=== PATIENT | female | born 1990 | race African-American/Black ===

== ENCOUNTER 2017-11-01 06:19 | Emergency (ER) | payer BC ==
--- NOTE | 2017-11-01 06:49 | EDPHYS ---
Physician Documentation [facility] Name: Alice Giordano Age: 27 yrs Sex: Female : 1990 Arrival Date: 11/01/2017 Time: 06:26 Bed 6 Private MD: ED Physician Jhonatan Marcos HPI: 11/01 06:43 This 27 yrs old Black Female presents to ER via Ambulatory with complaints of Salivary rn Stone Problem. 06:43 The patient presents with swelling. Onset: The symptoms/episode began/occurred at an rn unknown time. Modifying factors: The symptoms are alleviated by nothing, the symptoms are aggravated by food. Associated signs and symptoms: Pertinent positives: swelling, Pertinent negatives: pain, swelling. Severity of symptoms: At their worst the symptoms were moderate, in the emergency department the symptoms have improved. The patient has not experienced similar symptoms in the past. The patient has not recently seen a physician. Reports has had salivary stone since she was small, has dealt with it, recently manipulated it and thinks made it worse, now hurts when eats, seen by dentist and told large stone seen on xray but he doesn't remove them. Made ENT appt but not available with Dr. Fulton for 1 month out. . 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 - Social history:: Smoking status: Patient/guardian denies using tobacco, Patient uses alcohol, occasionally. Patient/guardian denies using street drugs. - Family history:: not pertinent. - Hospitalizations: : No recent hospitalization is reported. ROS: 06:43 Constitutional: Negative for fever, chills, and weight loss, Eyes: Negative for injury, rn pain, redness, and discharge, ENT: Negative for injury, + salivary stone Exam: 06:43 Constitutional: This is a well developed, well nourished patient who is awake, alert, rn and in no acute distress. ENT: + sublingual swelling and firm mass palpated on left side, mobile, non-tender, no erythema or drainage Vital Signs: 06:30 BP 144 / 96; Pulse 85; Resp 18; Temp 98.7(O); Pulse Ox 100% on NC; Weight 84.82 kg (R); fc Height 6 ft. 0 in. (182.88 cm) (R); Pain 3/10; 06:30 Body Mass Index 25.36 (84.82 kg, 182.88 cm) fc MDM: 06:35 Patient medically screened. rn 06:43 Differential diagnosis: salivary stone. Data reviewed: vital signs, nurses notes, and rn as a result, I will discharge patient. Counseling: I had a detailed discussion with the patient and/or guardian regarding: the historical points, exam findings, and any diagnostic results supporting the discharge/admit diagnosis, the need for outpatient follow up, to return to the emergency department if symptoms worsen or persist or if there are any questions or concerns that arise at home. Special discussion: I discussed with the patient/guardian in detail that at this point there is no indication for admission to the hospital. It is understood, however, that if the symptoms persist or worsen the patient needs to return immediately for re-evaluation. Based on the history and exam findings, there is no indication for further emergent testing or inpatient evaluation. I discussed with the patient/guardian the need to see the ENT specialist for further evaluation of the symptoms. Administered Medications: No medications were administered Disposition: 11/01/17 06:48 Discharged to Home as Medical Screen. Impression: Sialolithiasis. - Condition is Stable. - Medication Reconciliation Form, Thank You Letter, Antibiotic Education, Prescription Opioid Use form. - Follow up: Merline Fulton MD; When: As needed; Reason: Recheck today's complaints, Re-evaluation by your physician. - Problem is chronic. - Symptoms are unchanged. Signatures: Antonia Dubon RN RN fc Odalis Pike RN RN bb Jhonatan Marcos MD MD rn
--- NOTE | 2017-11-01 06:49 | ER ---
Nurse's Notes [facility] Name: Alice Giordano Age: 27 yrs Sex: Female : 1990 Arrival Date: 11/01/2017 Time: 06:26 Bed 6 Private MD: Diagnosis: Sialolithiasis Presentation: 11/01 06:30 Presenting complaint: Patient states: that she has had a salivary stone for years and fc over the weekend it got stuck. The pain was worse this am when she attempted to drink a coke. Its on the left side. Transition of care: patient was not received from another setting of care. Onset of symptoms was November 01, 2017. Care prior to arrival: None. 06:30 Method Of Arrival: Ambulatory 06:30 Acuity: SANG [address] M[address]ER: 06:52 LMP N/A - bb Historical: - Allergies: 06:36 benzocaine; fc 06:36 SHELLFISH; fc 06:36 brianna; fc - Home Meds: 06:36 Vyvanse 60 mg oral cap 1 cap once daily [Active]; fc - PMHx: 06:36 ADD/ADHD; Salivary Stone; fc - PSHx: 06:36 Hernia repair; fc - Immunization history:: Last tetanus immunization: up to date. - Social history:: Smoking status: Patient/guardian denies using tobacco, Patient uses alcohol, occasionally. Patient/guardian denies using street drugs. - Family history:: not pertinent. - Hospitalizations: : No recent hospitalization is reported. Screenin:35 Abuse screen: Denies threats or abuse. Nutritional screening: No deficits noted. fc Tuberculosis screening: No symptoms or risk factors identified. Fall Risk None identified. Assessment: 06:33 General: Appears in no apparent distress. well groomed, Behavior is calm, cooperative. bb Pain: Complains of pain in left submandibular area Pain currently is 3 out of 10 on a pain scale. at worst was 6 out of 10 on a pain scale. Neuro: Level of Consciousness is awake, alert, obeys commands, Oriented to person, place, time, situation. Cardiovascular: Heart tones S1 S2 present Capillary refill < 3 seconds Patient's skin is warm and dry. Respiratory: Respiratory effort is even, unlabored, Respiratory pattern is regular, Breath sounds are clear bilaterally. GI: No signs and/or symptoms were reported involving the gastrointestinal system. Abdomen is non-distended. EENT: Reports she has a salivary stone left side which is bothering her. Derm: Skin is dry, Skin is normal, Skin temperature is warm. Musculoskeletal: Circulation, motion, and sensation intact. 06:51 Reassessment: pt verbalized understanding of and agrees to plan of care discharge bb instructions given pt ambulated with steady gait to exit. Vital Signs: 06:30 BP 144 / 96; Pulse 85; Resp 18; Temp 98.7(O); Pulse Ox 100% on NC; Weight 84.82 kg (R); fc Height 6 ft. 0 in. (182.88 cm) (R); Pain 3/10; 06:30 Body Mass Index 25.36 (84.82 kg, 182.88 cm) ED Course: 06:26 Patient arrived in ED. do 06:30 Arm band placed on Patient placed in an exam room, on a stretcher. fc 06:33 Warm blanket given. bb 06:34 Triage completed. fc 06:35 Jhonatan Marcos MD is Attending Physician. rn 06:35 Patient has correct armband on for positive identification. Bed in low position. Call fc light in reach. Pulse ox on. NIBP on. 06:35 No provider procedures requiring assistance completed. fc 06:48 Merline Fulton MD is Referral Physician. rn 06:52 Patient did not have IV access during this emergency room visit. bb Administered Medications: No medications were administered Outcome: 06:48 Discharge ordered by . rn 06:51 Discharged to home ambulatory. bb 06:51 Condition: stable 06:51 Discharge instructions given to patient, Instructed on discharge instructions, follow up and referral plans. Demonstrated understanding of instructions, follow-up care. 06:52 Patient left the ED. bb Signatures: Antonia Dubon RN RN fc Odalis Pike RN RN bb Jhonatan Marcos MD MD rn Ogletree, Danielle do
[2017-11-01 07:10] VITALS: BP 144/96; TEMP 98.7; O2SAT 100
== END 2017-11-01 06:52 | disposition home or self-care (01) ==
LOC: ER 06:19
DX: K11.5 Sialolithiasis (principal); F90.9 Attention-deficit hyperactivity disorder, unspecified type; Z88.4 Allergy status to anesthetic agent; Z91.013 Allergy to seafood
CPT/HCPCS: 99283

== ENCOUNTER 2017-11-03 12:23 | Observation (INO) | payer BC ==
[2017-11-03] MEDS ORDERED: FENTANYL CITR 100 MCG/2 ML ONE ×4 (13:34→17:45)
[2017-11-03] MEDS ORDERED: CEFTRIAXONE/SWI 1gm 1 GM/10 ML SYR ONE (13:35)
[2017-11-03] MEDS ORDERED: ONDANSETRON 4 MG/2 ML VIAL ONE ×2 (13:35→17:45)
[2017-11-03] MEDS ORDERED: NA CHLORIDE 0.9% 1,000 ML ONE (13:35)
[2017-11-03 13:43] LABS: Absolute Lymphocytes (CBC) 2.4 K/uL (0.7-4.9); Absolute Monocytes 0.7 K/uL (0.1-1.3); Absolute Neutrophil 5.6 K/uL (1.8-8.0); Basophils % 0.5 % (0-1.3); Eosinophils % 2.3 % (0-4.4); Hematocrit 41.5 % (36.0-45.0); Lymphocytes % 26.7 % (15.3-44.8); MCH 30.2 pg (27.0-35.0); MCV 90.3 fL (80-100); MPV 7.5 fL (7.6-11.3); Monocytes % 8.1 % (3.3-12.3); RBC Red Blood Cell Count 4.59 M/uL (3.86-4.86)
[2017-11-03 13:57] LABS: Glucose Level 111 mg/dL (65-120)
[2017-11-03 14:00] LABS: ALT/SGPT 29 IU/L (10-60); AST/SGOT 36 IU/L (10-42); Albumin 4.1 g/dL (3.2-5.5); Alkaline Phosphatase 40 IU/L (42-121); BUN Blood Urea Nitrogen 20 mg/dL (6-20); Bicarbonate 25 mEq/L (21-31); Bilirubin Total 0.5 mg/dL (0.3-1.2); Glomerular Filtration Rate > 90 mL/min (=/>90); Protein, Total 6.9 g/dL (6.0-8.3); Sodium Level 133 mEq/L (135-145)
[2017-11-03] MEDS ORDERED: CLINDAMYCIN 900MG/D5W 900 MG/50 ML BAG IV ONE (14:20)
--- NOTE | 2017-11-03 14:52 | ER ---
Nurse's Notes [facility] Name: Alice Giordano Age: 27 yrs Sex: Female : 1990 Arrival Date: 11/03/2017 Time: 12:27 Bed 18 Private MD: Diagnosis: Sialolithiasis Presentation: 11/03 12:32 Presenting complaint: Patient states: I have a salivary stone and now I am having la1 swelling in my jaw and worsening pain. Transition of care: patient was not received from another setting of care. Onset of symptoms was November 03, 2017. Care prior to arrival: None. 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 - Social history:: Smoking status: Patient/guardian denies using tobacco. - Family history:: not pertinent. Screenin:57 Abuse screen: Denies threats or abuse. Nutritional screening: No deficits noted. em Tuberculosis screening: No symptoms or risk factors identified. Fall Risk None identified. Assessment: 13:00 General: Appears in no apparent distress. uncomfortable, Behavior is cooperative, em crying. General: Denies fever, was here 2 days ago, was dx with salivary stone, saw dentist yesterday but was charging 1000.00 to remove stone. . Pain: Complains of pain in left submandibular area Pain radiates to left side of neck Pain currently is 10 out of 10 on a pain scale. Pain began 4 days ago. Neuro: Level of Consciousness is awake, alert, obeys commands, Oriented to person, place, time, situation. Cardiovascular: Capillary refill < 3 seconds Patient's skin is warm and dry. Respiratory: Airway is patent Respiratory effort is even, unlabored, Respiratory pattern is regular, symmetrical. GI: Abdomen is flat. : No signs and/or symptoms were reported regarding the genitourinary system. EENT: Oral mucosa is moist. Good dentition noted. Reports difficulty swallowing. Derm: Skin is intact, Skin is pink, warm \T\ dry. Musculoskeletal: Range of motion: intact in all extremities. 14:14 Reassessment: Patient appears in no apparent distress at this time. Patient and/or em family updated on plan of care and expected duration. Pain level reassessed. Patient is alert, oriented x 3, equal unlabored respirations, skin warm/dry/pink. 15:10 Reassessment: Patient appears in no apparent distress at this time. Patient and/or em family updated on plan of care and expected duration. Pain level reassessed. Patient is alert, oriented x 3, equal unlabored respirations, skin warm/dry/pink. 15:28 Reassessment: Patient appears in no apparent distress at this time. No changes from la1 previously documented assessment. I agree with the above assessment by Alfred Pickens. Vital Signs: 12:33 BP 132 / 77; Pulse 88; Resp 16; Temp 99.2(TE); Pulse Ox 100% on R/A; Weight 81.65 kg; la1 Height 6 ft. 0 in. (182.88 cm); 13:30 BP 114 / 76; Pulse 64; Resp 15; Pulse Ox 99% on R/A; Pain 9/10; em 14:27 BP 116 / 90; Pulse 88; Resp 18; Pulse Ox 99% on R/A; em 15:27 BP 120 / 76; Pulse 61; Resp 16; Pulse Ox 99% on R/A; mh5 12:33 Body Mass Index 24.41 (81.65 kg, 182.88 cm) la1 ED Course: 12:27 Patient arrived in ED. as 12:32 Triage completed. la1 12:33 Arm band placed on right wrist. la1 12:37 Alfred Pickens LVN is Primary Nurse. em 12:50 April Jackson FNP-C is PHCP. kb 12:50 Marlo Chiu MD is Attending Physician. kb 13:06 Marlo Chiu MD is Attending Physician. ge 13:30 No provider procedures requiring assistance completed. Initial lab(s) drawn, by me, em sent to lab. Inserted saline lock: 20 gauge in right antecubital area, using aseptic technique. 13:57 Patient has correct armband on for positive identification. Bed in low position. Call em light in reach. Side rails up X2. Adult w/ patient. 14:51 Merline Fulton MD is Hospitalizing Provider. ge 16:28 Patient admitted, IV remains in place. em Administered Medications: 13:30 Drug: NS 0.9% 1000 ml Route: IV; Rate: 1 bolus; Site: right antecubital; em 14:53 Follow up: IV Status: Completed infusion; IV Intake: 1000ml em 13:31 Drug: Rocephin - (cefTRIAXone) 1 grams Route: IVPB; Infused Over: 30 mins; Site: right jl7 antecubital; 13:33 Follow up: Response: No adverse reaction; IV Status: Completed infusion jl7 14:00 Follow up: Response: No adverse reaction em 13:34 Drug: fentaNYL (PF) 50 mcg Route: IVP; Site: right antecubital; jl7 14:01 Follow up: Response: No adverse reaction; Pain is decreased em 13:36 Drug: Zofran 4 mg Route: IVP; Site: right antecubital; jl7 14:01 Follow up: Response: No adverse reaction em 14:09 Drug: Clindamycin 900 mg Route: IVPB; Infused Over: 30 mins; Site: right antecubital; em 14:54 Follow up: IV Status: Completed infusion; IV Intake: 50ml em 14:44 Drug: fentaNYL (PF) 50 mcg Route: IVP; Site: right antecubital; em 14:54 Follow up: Response: No adverse reaction; Pain is decreased em 15:47 Drug: fentaNYL (PF) 25 mcg Route: IVP; Site: right antecubital; em 15:58 Follow up: Response: No adverse reaction; Pain is decreased em Intake: 14:53 IV: 1000ml; Total: 1000ml. em 14:54 IV: 50ml; Total: 1050ml. em Outcome: 14:52 Decision to Hospitalize by Provider. ge 16:27 Admitted to Med/surg accompanied by tech, via wheelchair, room 211, Report called to em Briseida Fuentes RN 16:27 Condition: good 16:27 Instructed on the need for admit, Demonstrated understanding of instructions. 16:30 Patient left the ED. em Signatures: April Jackson, WING COVERER-C WING COVERER-Marlo Ghotra MD MD cha Munoz, Edgar, CAPSULE FILLER CAPSULE FILLER em Viki Royal Lee RN RN or1 Alyce Royal [facility] Carroll Reed, RN RN jl7
--- NOTE | 2017-11-03 14:52 | EDPHYS ---
Physician Documentation [facility] Name: Alice Giordano Age: 27 yrs Sex: Female : 1990 Arrival Date: 11/03/2017 Time: 12:27 Bed 18 Private MD: ED Physician Marlo Chiu HPI: 11/03 13:13 This 27 yrs old Black Female presents to ER via Ambulatory with complaints of Mouth ge Problem. 13:13 The patient presents with pain, redness. The problem is located in the tongue. Onset: ge The symptoms/episode began/occurred 4 day(s) ago. Duration: The symptoms are continuous, and are steadily getting worse. Modifying factors: The symptoms are alleviated by nothing, the symptoms are aggravated by food. Associated signs and symptoms: The patient has no apparent associated signs or symptoms. Severity of symptoms: At their worst the symptoms were moderate, in the emergency department the symptoms are unchanged. The patient has not experienced similar symptoms in the past. 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 - Social history:: Smoking status: Patient/guardian denies using tobacco. - Family history:: not pertinent. ROS: 13:13 Eyes: Negative for injury, pain, redness, and discharge, Neck: Negative for injury, ge pain, and swelling, Cardiovascular: Negative for chest pain, palpitations, and edema, Respiratory: Negative for shortness of breath, cough, wheezing, and pleuritic chest pain, Abdomen/GI: Negative for abdominal pain, nausea, vomiting, diarrhea, and constipation, Back: Negative for injury and pain, : Negative for injury, bleeding, discharge, and swelling, MS/Extremity: Negative for injury and deformity, Skin: Negative for injury, rash, and discoloration, Neuro: Negative for headache, weakness, numbness, tingling, and seizure, Psych: Negative for depression, anxiety, suicide ideation, homicidal ideation, and hallucinations, Allergy/Immunology: Negative for hives, rash, and allergies, Endocrine: Negative for neck swelling, polydipsia, polyuria, polyphagia, and marked weight changes, Hematologic/Lymphatic: Negative for swollen nodes, abnormal bleeding, and unusual bruising. 13:13 Constitutional: Positive for body aches, chills. 13:13 ENT: Positive for dental pain, Gum pain Exam: 13:13 Constitutional: This is a well developed, well nourished patient who is awake, alert, ge and in no acute distress. Head/Face: Normocephalic, atraumatic. Eyes: Pupils equal round and reactive to light, extra-ocular motions intact. Lids and lashes normal. Conjunctiva and sclera are non-icteric and not injected. Cornea within normal limits. Periorbital areas with no swelling, redness, or edema. ENT: Nares patent. No nasal discharge, no septal abnormalities noted. Tympanic membranes are normal and external auditory canals are clear. Oropharynx with no redness, swelling, or masses, exudates, or evidence of obstruction, uvula midline. Mucous membranes moist. Chest/axilla: Normal chest wall appearance and motion. Nontender with no deformity. No lesions are appreciated. Cardiovascular: Regular rate and rhythm with a normal S1 and S2. No gallops, murmurs, or rubs. Normal PMI, no JVD. No pulse deficits. Respiratory: Lungs have equal breath sounds bilaterally, clear to auscultation and percussion. No rales, rhonchi or wheezes noted. No increased work of breathing, no retractions or nasal flaring. Abdomen/GI: Soft, non-tender, with normal bowel sounds. No distension or tympany. No guarding or rebound. No evidence of tenderness throughout. Back: No spinal tenderness. No costovertebral tenderness. Full range of motion. Female : Normal external genitalia. Skin: Warm, dry with normal turgor. Normal color with no rashes, no lesions, and no evidence of cellulitis. MS/ Extremity: Pulses equal, no cyanosis. Neurovascular intact. Full, normal range of motion. Neuro: Awake and alert, GCS 15, oriented to person, place, time, and situation. Cranial nerves II-XII grossly intact. Motor strength 5/5 in all extremities. Sensory grossly intact. Cerebellar exam normal. Normal gait. Psych: Awake, alert, with orientation to person, place and time. Behavior, mood, and affect are within normal limits. 13:13 Neck: External neck: swelling, tenderness, that is mild, that is moderate, of the left submandibular area. Vital Signs: 12:33 BP 132 / 77; Pulse 88; Resp 16; Temp 99.2(TE); Pulse Ox 100% on R/A; Weight 81.65 kg; la1 Height 6 ft. 0 in. (182.88 cm); 13:30 BP 114 / 76; Pulse 64; Resp 15; Pulse Ox 99% on R/A; Pain 9/10; em 14:27 BP 116 / 90; Pulse 88; Resp 18; Pulse Ox 99% on R/A; em 15:27 BP 120 / 76; Pulse 61; Resp 16; Pulse Ox 99% on R/A; mh5 12:33 Body Mass Index 24.41 (81.65 kg, 182.88 cm) la1 MDM: 12:50 Patient medically screened. kb 13:06 Patient medically screened. [facility] 13:18 Data reviewed: vital signs, nurses notes, lab test result(s), radiologic studies. [facility] 11/03 13:13 Order name: CBC with Diff; Complete Time: 14:50 [facility] 11/03 13:13 Order name: Comprehensive Metabolic Panel; Complete Time: 14:50 [facility] 11/03 13:13 Order name: Urine Culture [facility] 11/03 14:56 Order name: Basic Metabolic Panel [facility] 11/03 14:56 Order name: Basic Metabolic Panel [facility] 11/03 14:56 Order name: CBC with Automated Diff [facility] 11/03 14:56 Order name: CBC with Automated Diff [facility] 11/03 15:50 Order name: Urine Dipstick--Ancillary (enter results) 11/03 15:50 Order name: Urine --Ancillary (enter results) 11/03 13:13 Order name: Urine Test (obtain specimen); Complete Time: 15:44 [facility] 11/03 13:13 Order name: Urine Dipstick-Ancillary (obtain specimen); Complete Time: 15:44 [facility] 11/03 14:56 Order name: NPO EDMS 11/03 14:56 Order name: NPO EDMS Administered Medications: 13:30 Drug: NS 0.9% 1000 ml Route: IV; Rate: 1 bolus; Site: right antecubital; em 14:53 Follow up: IV Status: Completed infusion; IV Intake: 1000ml em 13:31 Drug: Rocephin - (cefTRIAXone) 1 grams Route: IVPB; Infused Over: 30 mins; Site: right jl7 antecubital; 13:33 Follow up: Response: No adverse reaction; IV Status: Completed infusion jl7 14:00 Follow up: Response: No adverse reaction em 13:34 Drug: fentaNYL (PF) 50 mcg Route: IVP; Site: right antecubital; jl7 14:01 Follow up: Response: No adverse reaction; Pain is decreased em 13:36 Drug: Zofran 4 mg Route: IVP; Site: right antecubital; jl7 14:01 Follow up: Response: No adverse reaction em 14:09 Drug: Clindamycin 900 mg Route: IVPB; Infused Over: 30 mins; Site: right antecubital; em 14:54 Follow up: IV Status: Completed infusion; IV Intake: 50ml em 14:44 Drug: fentaNYL (PF) 50 mcg Route: IVP; Site: right antecubital; em 14:54 Follow up: Response: No adverse reaction; Pain is decreased em 15:47 Drug: fentaNYL (PF) 25 mcg Route: IVP; Site: right antecubital; em 15:58 Follow up: Response: No adverse reaction; Pain is decreased em Disposition: 18 14:52 Hospitalization ordered by Merline Fulton for Observation. Preliminary diagnosis is Sialolithiasis. - Bed requested for Telemetry/MedSurg (observation). - Status is Observation. em - Condition is Stable. - Problem is new. - Symptoms have improved. UTI on Admission? No Signatures: Dispatcher [employer] April Anderson, BRYAN-C HEALTH POLICY MANAGER-Marlo Ghotra MD MD cha Munoz, Edgar, BOX TRUCK WASHER BOX TRUCK WASHER em Alexis Peralta RN RN laCarroll Curran RN RN jl7 Kelli Baxter RN RN df
[2017-11-03] MEDS ORDERED: ACETAMINOPHEN 500 MG TAB PO PRN (14:54)
[2017-11-03] MEDS ORDERED: FENTANYL CITR 100 MCG/2 ML IV PRN (14:55)
[2017-11-03] MEDS: D5 0.45 NS 1,000 ML IV SCH ×2 (15:00→23:12)
[2017-11-03] MEDS: ONDANSETRON 4 MG/2 ML VIAL IV PRN ×2 (16:22→23:11)
[2017-11-03] MEDS ORDERED: Ringers Lactate 1,000 ML IV ONE ×2 (16:41→20:02)
[2017-11-03 17:23] LABS: Urine Blood TRACE (NEG); Urine Glucose NEGATIVE (NEG); Urine Protein NEGATIVE (NEG); Urine Specific Gravity 1.025 (1.005-1.030); Urine pH 5.5 (5.0-7.0)
[2017-11-03] MEDS ORDERED: LIDOCAINE 1% MPF 5 ML VIAL ONE (17:45)
[2017-11-03] MEDS ORDERED: PROPOFOL 200 MG/20 ML VIAL IV ONE (17:45)
[2017-11-03] MEDS ORDERED: MIDAZOLAM HCL 2 MG/2 ML INJ ONE (17:45)
[2017-11-03] MEDS ORDERED: CHLORHEXIDINE 0.12% 473ML BOT MM ONE (18:13)
[2017-11-03] MEDS ORDERED: ROCURONIUM 50 MG/5 ML VIAL IV ONE (18:35)
--- NOTE | 2017-11-03 18:51 | P.BOP ---
Preoperative diagnosis: sialolithiasis, acute sialoadenitis Postoperative diagnosis: same Primary procedure: marsupialization of left SMG with removal of stone Special Procedures Tech: NONE,NONE Estimated blood loss: 15ml Specimen: none Findings: approx 1 x 0.5 cm stone given to family Anesthesia: General Complications: None Implants: none Fluids & blood products: crystalloid 600ml Transferred to: Recovery Room Condition: Good
[2017-11-03] MEDS ORDERED: DEXAMETHASONE 10 MG/ML VIAL ONE (18:55)
[2017-11-03] MEDS ORDERED: MEPERIDINE HCL 25 MG/0.5 ML ONE (19:16)
[2017-11-03] MEDS: MEPERIDINE HCL 25 MG/0.5 ML ONE ×2 (19:18→19:32)
[2017-11-03] MEDS ORDERED: MORPHINE 4 MG/ML SYR IV PRN (19:38)
[2017-11-03 19:49] VITALS: O2SAT 98
[2017-11-03] MEDS: IBUPROFEN 200 MG TAB PO SCH (20:58)
[2017-11-04] MEDS: IBUPROFEN 200 MG TAB PO SCH ×2 (00:09→04:08)
[2017-11-04] MEDS ORDERED: CLINDAMYCIN INJ 900 MG in NA CHLORIDE 0.9% 50 ML IV SCH (01:00)
[2017-11-04] MEDS: ONDANSETRON 4 MG/2 ML VIAL IV PRN (04:55)
[2017-11-04] MEDS: D5 0.45 NS 1,000 ML IV SCH (06:35)
--- NOTE | 2017-11-04 07:20 | OP ---
Date of Procedure: 11/03/2017 Surgeon: Merline Fulton MD Preoperative Diagnosis: Sialolithiasis, salivary gland obstruction, acute sialoadenitis. Postoperative Diagnosis: Sialolithiasis, salivary gland obstruction, acute sialoadenitis. Procedure: Marsupialization of left submandibular gland with removal of stone. Indication For Procedure: Alice Giordano is a 27-year-old with a long history of salivary stone. She w as previously evaluated by an ENT in [place] who recommended conservative treatments. Over the last 4 days, she has developed severe pain in the left submandibular region with swelling of the left subm andibular gland and extreme pain with any attempts at oral food or liquid intake. She came to the ergency room for evaluation and treatment. She did not undergo any local imaging study; however, she had previously undergone imaging at the outside facility and a single image of a bone, CT reconstruc tion image, shows a single large approximately 1 cm stone in the area clinically suspicious for Whart on's duct. Due to the severity of the patient's current symptoms, operative intervention with remova l of this stone is recommended with the surgical plan for marsupialization of [place]'s duct extracti on of salivary stone with a backup plan for submandibular gland excision. The risks, benefits, and a lternatives to the procedure were discussed with the patient who agrees to proceed. Due to the patie nt's oral intake at approximately 12 p.m., the procedure was delayed until 6 p.m. to allow for gastri c emptying. Description Of Procedure: The patient was brought to the operating room. She was placed under gener al anesthesia via oral endotracheal tube. A bite-block was placed between the right molars. The alejandra ek and tongue were retracted to reveal the floor of mouth with minimal pressure on the floor of mouth , and on the exterior neck, there is purulent drainage through the Adama's duct opening on the left side with a culture for aerobic and anaerobic evaluation was collected in the operating room and sen t to the laboratory. A 00 lacrimal probe was used to identify Adama's duct opening and the opening was sequentially dilated to a size 1 lacrimal probe. The sharp iris scissors were then placed along the lacrimal probe and used to incise the Adama's duct. This was done in a sequential fashion, op ening the duct along its length until with gentle pressure the stone was removed. The stone was appr oximately 1 x 0.5 cm and was set aside. The submandibular gland and floor of mouth were milked for r emoval of residual purulence and debris. An Angiocath attached to a 10 cc syringe was then passed wi thin Adama's duct and used to irrigate the duct. A 5-0 chromic suture was then used to place sutur es along the [place]'s duct in order to obtain better long-term opening and prevent stenosis of the d uct. A Ray-Riley was packed along the floor of mouth and direct pressure was applied for several minut es due to mucosal oozing. After removal of the packing, the site appeared hemostatic. The retractor s and bite block were removed and the patient was returned to care of the Anesthesia for awakening, e xtubation in the operating room, which proceeded without difficulty. Disposition: Due to risk of floor of mouth swelling, which could result in posterior displacement of the tongue and airway swelling, the decision was made to keep the patient in observation overnight. She will be reassessed in the morning in regard to candidacy for discharge home on oral antibiotics. We will continue IV clindamycin, start clear liquid diet, and use scheduled ibuprofen 600 mg q.6 ho urs with morphine for breakthrough pain and continue IV fluids for the time being. ALANA Voice ID: [id number] Report ID: [id number]
[2017-11-04] MEDS ORDERED: LISDEXAMFETAMINE DIMESYLATE 60 MG PO SCH (09:00)
[2017-11-04 09:38] VITALS: BP 123/74; TEMP 98.5
== END 2017-11-04 09:35 | disposition home or self-care (01) ==
LOC: ER 12:23 → ERHOLD 14:52 → 2ND 16:02
PROVIDERS: ADMIT Otolaryngology; ATTEND Otolaryngology
PROC: 0CC Mouth and Throat, Extirpation (ICD-10-PCS; principal; 2017-11-03 18:00)
DX: K11.5 Sialolithiasis (principal); K11.21 Acute sialoadenitis
CPT/HCPCS: 36415; 80053; 81003; 81025; 85025; 87070; 87075; 87086; 87088; 87205; 96361; 96365; 96375; 99285; G0378; J0696; J1100; J2175; J2250; J2405; J3010; J7030

== ENCOUNTER 2019-09-06 17:21 | Emergency (ER) | payer BC ==
--- OUTSIDE RECORDS SUMMARY | 2019-09-06 17:24 | XMS REPORT ---
:1990 [facility] Address [address] [place] [address] Dr. Carpio. [address] [place] [id number] Care Team Providers Name Role Phone Unavailable Unavailable Unavailable Problems This patient has no known problems. Allergies, Adverse Reactions, Alerts This patient has no known allergies or adverse reactions. Medications This patient has no known medications.
[2019-09-06 18:04] LABS: Absolute Lymphocytes (CBC) 0.4 K/uL (0.7-4.9); Basophils % 0.1 % (0-1.3); Hematocrit 41.2 % (36.0-45.0); Lymphocytes % 6.4 % (15.3-44.8); MPV 7.8 fL (7.6-11.3); RBC Red Blood Cell Count 4.55 M/uL (3.86-4.86)
[2019-09-06] MEDS ORDERED: FAMOTIDINE 20 MG/2 ML VIAL IV ONE (18:07)
[2019-09-06] MEDS ORDERED: NA CHLORIDE 0.9% 1,000 ML ONE (18:07)
[2019-09-06] MEDS ORDERED: ONDANSETRON 4 MG/2 ML VIAL ONE (18:07)
[2019-09-06 18:24] LABS: ALT/SGPT 38 U/L (12-78); AST/SGOT 36 U/L (15-37); Albumin 3.8 g/dL (3.4-5.0); Alkaline Phosphatase 49 U/L (45-117); BUN Blood Urea Nitrogen 13 mg/dL (7-18); Bicarbonate 26 mmol/L (21-32); Bilirubin Direct 0.3 mg/dL (0-0.2); Glucose Level 88 mg/dL (74-106); Lipase 50 U/L (73-393); Magnesium 1.9 mg/dL (1.8-2.4); Potassium 3.6 mmol/L (3.5-5.1); Protein, Total 7.2 g/dL (6.4-8.2); Sodium Level 138 mmol/L (136-145)
[2019-09-06 18:55] LABS: Urine Blood 2+ (NEG); Urine Glucose NEGATIVE (NEG); Urine Protein NEGATIVE (NEG); Urine Specific Gravity 1.015 (1.005-1.030); Urine pH 5.5 (5.0-7.0)
--- NOTE | 2019-09-06 18:58 | RAD REPORT ---
EXAM DESCRIPTION: CT - Abdomen Pelvis Wo Contrast - 09/06/2019 6:49 pm CLINICAL HISTORY: Abdominal pain. diarrhea;Nausea / vomiting COMPARISON: No comparisons TECHNIQUE: CT imaging of the abdomen and pelvis was performed without contrast. Solid organ, bowel a nd vascular assessment is limited due to lack of IV and oral contrast. All CT scans are performed using dose optimization technique as appropriate and may include automated exposure control or mA/KV adjustment according to patient size. FINDINGS: The lower lung montes are clear. The liver, spleen, pancreas, adrenal glands and kidneys are within normal limits for a limited non-co ntrast examination. No bowel obstruction, free air, free fluid or abscess. The appendix is normal. The osseous structures are within normal limits. IMPRESSION: No acute intra-abdominal or pelvic findings. A limited non-contrast examination was performed as detailed.
[2019-09-06 19:44] LABS: Blood Morphology Comment NOT SEEN (NOT SEEN); Platelet Estimate ADEQ; Urine White Blood Cell Casts OK
--- NOTE | 2019-09-06 20:16 | EDPHYS ---
Physician Documentation [facility] Name: Alice Giordano Age: 29 yrs Sex: Female : 1990 Arrival Date: 09/06/2019 Time: 17:29 Bed 26 Private MD: ED Physician Marlo Chiu HPI: 09/06 17:35 This 29 yrs old Black Female presents to ER via EMS with complaints of nausea, vomiting cp and diarrhea. 17:35 The patient presents to the emergency department with nausea, that is moderate, cp vomiting, that is intermittent, diarrhea, that is continuous. Onset: The symptoms/episode began/occurred this morning. Possible causes: unknown. Associated signs and symptoms: Pertinent positives: abdominal pain, weakness, Pertinent negatives: constipation, fever, GI bleeding. Severity of symptoms: in the emergency department the symptoms are unchanged despite EMS interventions. 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 - Coronavirus screen:: The patient has NOT traveled to [place], [place], or [place] in the past 14 days. - Social history:: Smoking status: Patient/guardian denies using. - Ebola Screening: : Patient negative for fever greater than or equal to 101.5 degrees Fahrenheit, and additional compatible Ebola Virus Disease symptoms Patient denies exposure to infectious person. ROS: 17:40 Constitutional: Positive for poor PO intake, Negative for body aches, chills, fever. cp 17:40 Eyes: Negative for injury, pain, redness, and discharge. cp 17:40 ENT: Negative for drainage from ear(s), ear pain, sore throat, difficulty swallowing, difficulty handling secretions. 17:40 Cardiovascular: Negative for chest pain, palpitations. 17:40 Respiratory: Negative for cough, shortness of breath, wheezing. 17:40 Abdomen/GI: Positive for abdominal pain, nausea, vomiting, and diarrhea, anorexia, Negative for hematemesis, black/tarry stool, rectal bleeding. 17:40 : Negative for urinary symptoms. 17:40 Skin: Negative for rash. 17:40 Neuro: Positive for weakness, Negative for altered mental status, headache, syncope. 17:40 All other systems are negative. Exam: 17:45 Constitutional: The patient appears in no acute distress, alert, awake, non-toxic, well cp developed, well nourished. 17:45 Head/Face: Normocephalic, atraumatic. cp 17:45 Eyes: Periorbital structures: appear normal, Conjunctiva: normal, no exudate, no injection, Sclera: no appreciated abnormality, Lids and lashes: appear normal, bilaterally. 17:45 ENT: External ear(s): are unremarkable, Nose: is normal, Mouth: Lips: moist, Oral mucosa: pink and intact, moist, Posterior pharynx: is normal, airway is patent, no erythema, no exudate. 17:45 Chest/axilla: Inspection: normal, Palpation: is normal, no crepitus, no tenderness. 17:45 Cardiovascular: Rate: normal, Rhythm: regular. 17:45 Respiratory: the patient does not display signs of respiratory distress, Respirations: normal, no use of accessory muscles, labored breathing, is not present, Breath sounds: are clear throughout, no decreased breath sounds, no stridor, no wheezing. 17:45 Abdomen/GI: Inspection: abdomen appears normal, Bowel sounds: active, all quadrants, Palpation: soft, in all quadrants, mild abdominal tenderness, in the epigastric area, rebound tenderness, is not appreciated, involuntary guarding, is not appreciated. 17:45 Back: pain, is absent, ROM is normal. 17:45 Neuro: Orientation: to person, place \T\ time. Mentation: is normal, Motor: moves all fours, strength is normal, Gait: is steady. Vital Signs: 17:38 BP 136 / 82; Pulse 91; Resp 18; Temp 98.2; Pulse Ox 97% ; Weight 86.18 kg; Height 6 ft. wh 0 in. (182.88 cm); Pain 7/10; 19:15 BP 135 / 78; Pulse 90; Resp 18; Pulse Ox 100% on R/A; wh 20:35 BP 124 / 78; Pulse 90; Resp 18; Pulse Ox 100% on R/A; wh 17:38 Body Mass Index 25.77 (86.18 kg, 182.88 cm) MDM: 17:36 Patient medically screened. cp 18:00 Differential diagnosis: gastritis, appendicitis, viral gastroenteritis, cp gastroenteritis, dehydration, electrolyte abnormality, influenza. 20:15 Data reviewed: vital signs, nurses notes, lab test result(s), radiologic studies, CT cp scan. 20:15 Counseling: I had a detailed discussion with the patient and/or guardian regarding: the cp historical points, exam findings, and any diagnostic results supporting the discharge/admit diagnosis, lab results, radiology results, to return to the emergency department if symptoms worsen or persist or if there are any questions or concerns that arise at home. Response to treatment: the patient's symptoms have markedly improved after treatment, VSS. Nausea improved and vomiting resolved. Patient observed tolerating po fluids. Will discharge to home for continued monitoring. 09/06 17:33 Order name: Basic Metabolic Panel; Complete Time: 18:41 cp 09/06 19:48 Interpretation: Normal except: CA 8.4. cp 09/06 17:33 Order name: CBC with Diff; Complete Time: 19:47 cp 09/06 19:49 Interpretation: Normal except: SERGIO% 88.7; LYM% 6.4; LYMA 0.4. cp 09/06 17:33 Order name: Creatinine for Radiology; Complete Time: 18:41 cp 09/06 17:33 Order name: Hepatic Function; Complete Time: 18:41 cp 09/06 17:33 Order name: Lipase; Complete Time: 18:41 cp 09/06 19:49 Interpretation: LIP 50; Reviewed. cp 09/06 17:33 Order name: Magnesium; Complete Time: 18:41 cp 09/06 17:34 Order name: Influenza Screen (a \T\ B); Complete Time: 18:41 cp 09/06 18:16 Order name: Urine Dipstick--Ancillary (enter results); Complete Time: 19:14 eb 09/06 19:14 Interpretation: Normal except: UBLD 2+. cp 09/06 18:16 Order name: Urine --Ancillary (enter results); Complete Time: 19:14 eb 09/06 18:46 Order name: Abdomen ; Complete Time: 19:14 EDMS 09/06 19:14 Interpretation: Report reviewed. cp 09/06 19:45 Order name: CBC Smear Scan; Complete Time: 19:47 EDMD 09/06 17:33 Order name: IV Saline Lock; Complete Time: 17:53 cp 09/06 17:33 Order name: Labs collected and sent; Complete Time: 17:53 cp 09/06 17:34 Order name: Urine Dipstick-Ancillary (obtain specimen); Complete Time: 18:08 cp 09/06 17:34 Order name: Urine Test (obtain specimen); Complete Time: 18:08 cp 09/06 19:15 Order name: PO challenge; Complete Time: 19:30 cp Administered Medications: 18:00 Drug: NS 0.9% 1000 ml Route: IV; Rate: 1 bolus; Site: left antecubital; 20:33 Follow up: Response: No adverse reaction; IV Status: Completed infusion 18:02 Drug: Pepcid 20 mg Route: IVP; Site: left antecubital; 20:34 Follow up: Response: No adverse reaction 18:04 Drug: Zofran 4 mg Route: IVP; Site: left antecubital; 20:33 Follow up: Response: No adverse reaction 20:34 Follow up: Response: Nausea is decreased Disposition: 09/07 03:52 Co-signature as Attending Physician, Marlo Chiu MD I agree with the assessment and [facility] plan of care. Disposition: 09/06/19 20:15 Discharged to Home. Impression: Nausea and vomiting, Diarrhea, unspecified. - Condition is Stable. - Discharge Instructions: Food Choices to Help Relieve Diarrhea, Adult, Diarrhea, Adult, Nausea and Vomiting, Adult. - Prescriptions for promethazine 25 mg Oral Tablet - take 1 tablet by ORAL route every 6 hours As needed; 20 tablet. - Work release form, Medication Reconciliation Form, Thank You Letter, Antibiotic Education, Prescription Opioid Use form. - Follow up: Private Physician; When: 2 - 3 days; Reason: Recheck today's complaints. - Problem is new. - Symptoms have improved. Signatures: Dispatcher [employer] Marlo Milligan MD MD cha Page, Corey, PA PA cp Habalo, Winsy Corrections: (The following items were deleted from the chart) 09/06 18:46 17:35 Abdomen Pelvis W Con+CT.RAD.BRZ ordered. EDMD EDMS 19:48 19:47 Normal except. cp cp 19:49 19:47 Normal except: SERGIO% 88.7; LYM% 6.4. cp cp 20:36 20:15 09/06/2019 20:15 Discharged to Home. Impression: Nausea and vomiting; Diarrhea, wh unspecified. Condition is Stable. Forms are Medication Reconciliation Form, Thank You Letter, Antibiotic Education, Prescription Opioid Use. Follow up: Private Physician; When: 2 - 3 days; Reason: Recheck today's complaints. Problem is new. Symptoms have improved. cp
--- NOTE | 2019-09-06 20:16 | ER ---
Nurse's Notes [facility] Name: Alice Giordano Age: 29 yrs Sex: Female : 1990 Arrival Date: 09/06/2019 Time: 17:29 Bed 26 Private MD: Diagnosis: Nausea and vomiting;Diarrhea, unspecified Presentation: 09/06 17:29 Presenting complaint: EMS states: Pt having weakness from having multiple bowel wh movements and diarrhea that started at 11:00 am this morning. Pt Also C/O epigastric pain, nausea and vomiting. Denies fever, bloody stool or vomitus. Transition of care: patient was not received from another setting of care. Onset of symptoms was September 06, 2019. Risk Assessment: Do you want to hurt yourself or someone else? Patient reports no desire to harm self or others. Initial Sepsis Screen: Does the patient meet any 2 criteria? No. Patient's initial sepsis screen is negative. Does the patient have a suspected source of infection? No. Patient's initial sepsis screen is negative. Care prior to arrival: None. 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 - Coronavirus screen:: The patient has NOT traveled to [place], [place], or [place] in the past 14 days. - Social history:: Smoking status: Patient/guardian denies using. - Ebola Screening: : Patient negative for fever greater than or equal to 101.5 degrees Fahrenheit, and additional compatible Ebola Virus Disease symptoms Patient denies exposure to infectious person. Screenin:35 Abuse screen: Denies threats or abuse. Denies injuries from another. Nutritional screening: No deficits noted. Tuberculosis screening: No symptoms or risk factors identified. Fall Risk None identified. Assessment: 17:39 General: Appears in no apparent distress. Behavior is calm, cooperative, appropriate wh for age. Pain: Complains of pain in epigastric area Pain does not radiate. Pain currently is 7 out of 10 on a pain scale. Quality of pain is described as burning, Pain began 4 hours ago. Neuro: Level of Consciousness is awake, alert, obeys commands, Oriented to person, place, time, situation, Appropriate for age. Cardiovascular: Heart tones S1 S2. Respiratory: Airway is patent Respiratory effort is even, unlabored, Respiratory pattern is regular, symmetrical, Breath sounds are clear bilaterally. GI: Abdomen is flat, non-distended, Abd is soft and non tender X 4 quads. GI: Reports upper abdominal pain, diarrhea, nausea, vomiting. : No signs and/or symptoms were reported regarding the genitourinary system. EENT: No signs and/or symptoms were reported regarding the EENT system. Derm: Skin is intact, is healthy with good turgor, Skin is pink, warm \T\ dry. normal. Musculoskeletal: Circulation, motion, and sensation intact. 19:15 Reassessment: Patient appears in no apparent distress at this time. No changes from previously documented assessment. Patient and/or family updated on plan of care and expected duration. Pain level reassessed. Patient is alert, oriented x 3, equal unlabored respirations, skin warm/dry/pink. 20:34 Reassessment: Patient appears in no apparent distress at this time. No changes from previously documented assessment. Patient and/or family updated on plan of care and expected duration. Pain level reassessed. Patient is alert, oriented x 3, equal unlabored respirations, skin warm/dry/pink. Patient denies pain at this time. Patient states feeling better. Patient states symptoms have improved. Vital Signs: 17:38 BP 136 / 82; Pulse 91; Resp 18; Temp 98.2; Pulse Ox 97% ; Weight 86.18 kg; Height 6 ft. 0 in. (182.88 cm); Pain 7/10; 19:15 BP 135 / 78; Pulse 90; Resp 18; Pulse Ox 100% on R/A; 20:35 BP 124 / 78; Pulse 90; Resp 18; Pulse Ox 100% on R/A; 17:38 Body Mass Index 25.77 (86.18 kg, 182.88 cm) ED Course: 17:29 Patient arrived in ED. 17:29 Marlo Brownlee PA is PHCP. cp 17:29 Anita Owens MD is Attending Physician. cp 17:35 Triage completed. 17:40 Arm band placed on right wrist. 17:41 Patient has correct armband on for positive identification. Placed in gown. Bed in low wh position. Call light in reach. Side rails up X 1. Pulse ox on. NIBP on. 17:46 Radiology exam delayed due to lab results not completed at this time. (BUN/Creatinine) 2 test not completed at this time. 17:52 Initial lab(s) drawn, by ms, sent to lab. Flu and/or RSV swab sent to lab. Inserted lt1 saline lock: 20 gauge in left antecubital area, using aseptic technique. 17:53 Influenza Screen (a \T\ B) Sent. lt1 18:02 July Ross is Primary Nurse. 18:50 Abdomen In Process Unspecified. EDMS 19:13 Marlo Chiu MD is Attending Physician. cp 20:35 No provider procedures requiring assistance completed. IV discontinued, intact, bleeding controlled, No redness/swelling at site. Administered Medications: 18:00 Drug: NS 0.9% 1000 ml Route: IV; Rate: 1 bolus; Site: left antecubital; 20:33 Follow up: Response: No adverse reaction; IV Status: Completed infusion 18:02 Drug: Pepcid 20 mg Route: IVP; Site: left antecubital; 20:34 Follow up: Response: No adverse reaction 18:04 Drug: Zofran 4 mg Route: IVP; Site: left antecubital; 20:33 Follow up: Response: No adverse reaction 20:34 Follow up: Response: Nausea is decreased Outcome: 20:15 Discharge ordered by MD. cp 20:35 Discharged to home ambulatory, with family. 20:35 Condition: stable 20:35 Discharge instructions given to patient, family, Instructed on discharge instructions, follow up and referral plans. medication usage, POC Demonstrated understanding of instructions, follow-up care, medications, POC Prescriptions given X 1. 20:36 Patient left the ED. Signatures: Dispatcher [employer] EDAR Marlo Brownlee PA PA cp McGuire, Victoria 2 July Ross Kristi Allen lt1 Corrections: (The following items were deleted from the chart) 18:14 06:04 Zofran 4 mg IVP in left antecubital [facility] 18:14 06:02 Pepcid 20 mg IVP in left antecubital [facility]
[2019-09-06 20:47] VITALS: TEMP 98.2
[2019-09-06 20:48] VITALS: O2SAT 100
[2019-09-06 20:50] VITALS: BP 124/78
== END 2019-09-06 20:36 | disposition home or self-care (01) ==
LOC: ER 17:21
DX: R11.2 Nausea with vomiting, unspecified (principal); R19.7 Diarrhea, unspecified; Z91.013 Allergy to seafood; Z88.6 Allergy status to analgesic agent; F90.9 Attention-deficit hyperactivity disorder, unspecified type
CPT/HCPCS: 96361; 85025; 80048; 36415; 83735; 81025; 80076; 81003; 83690; 87804 ×2; 74176; 96375; 96374; 99284; J7030; J2405